=== PATIENT | female | born 1960 | race Caucasian/White ===

== ENCOUNTER → 2021-05-06 | Day surgery (SDC) | payer BC ==
[~2021-05-06] MED LIST: ACETAMINOPHEN 500 MG TABLET PO PRN; AMLO-186 PO; ATOR20TA58 PO; BALANCED SALT IRRIG SOLN NO.2 500 ML IO ONE; BENZONATATE 100 MG CAPSULE. PO PRN; BRIMONIDINE 0.2% OPHTH SOLUTION 5ML BOTTLE. OS ONE; CEFUROXIME OPHTH 4 MG/0.4 ML SYRINGE. OS ONE; CHONDROIT-SOD-HYALURONATE KIT. OS ONE; DORZ10DR27 EACHEYE; HYDR-2145 PO; IBUPROFEN 200 MG TABLET PO PRN; INSU100V13 SQ; INSULIN FLEX SQ; IPRATRPIUM/ALBUTEROL 0.5/2.5MG 3 ML NEBU. NEB PRN; IV RINGERS SOLUTION,LACTATED 1,000 ML IV SCH; LATA7.5D OU; LIDO/EPI IN BSS OPHTH 2.7 ML SYRINGE. OS ONE; LIDOCAINE 2% JELLY 6ML IN APPLICATOR. ONE; LISI10TA16 PO; MIDAZOLAM HCL PF 2 MG/2 ML VIAL. IV ONE; MIDAZOLAM HCL PF 2 MG/2 ML VIAL. ONE; ONDANSETRON PF 4 MG/2 ML VIAL. IV PRN; PHENYLEPHRINE 10% OPHTH SOLUTION 5ML BOTTLE. OS PRN; POVIDONE-IODINE 5% OPHTH SOLUTION 30ML BOTTLE. ONE; POVIDONE-IODINE 5% OPHTH SOLUTION 30ML BOTTLE. OS ONE; POVIDONE-IODINE 5% OPHTH SOLUTION 30ML BOTTLE. OS PRN; PROPARACAINE 0.5% OPHTH SOLUTION 15ML BOTTLE. OS ONE; PROPARACAINE 0.5% OPHTH SOLUTION 15ML BOTTLE. OS PRN; SERT-269 PO; prednisoLONE ACETATE 1% OPHTH SUSPENSION 5ML BOTTLE. OS ONE
[2021-05-06] MEDS: TROPICAMIDE 1% OPHTH SOLUTION 15ML BOTTLE. OS SCH ×3 (09:26→09:36)
[2021-05-06] MEDS: PHENYLEPHRINE 2.5% OPHTH SOLUTION 2ML BOTTLE. OS SCH ×3 (09:26→09:36)
[2021-05-06] MEDS: KETOROLAC TROMETHAMINE 0.5% OPHTH SOLUTION BOTTLE. OS SCH ×2 (09:26→09:32)
[2021-05-06] MEDS: TOBRAMYCIN 0.3% OPHTH SOLUTION 5ML BOTTLE. OS SCH ×2 (09:26→09:32)
--- NOTE | 2021-05-06 11:13 | PDOC4 ---
Cataract i-Stent Injection Surgeon: Mason Andrews MD Date of Procedure: 05/06/21 Preop Diagnosis: Visually significant cataract: Left Eye OS Primary open angle glaucoma: Left eye Postop Diagnosis: Postop Diagnosis: Same Procedure: Phaco w/ posterior chamber IOL: Left Eye OS iStent Inject Trabecular Micro: Left eye Anesthesia: Deep forniceal periocular 2% Lidocaine jelly Tali/retro bulbar block with 2% Lidocaine with 0.5% Marcaine Description of Procedure: The risks, benefits, and alternatives were discussed with the patient who elected to proceed. Informed consent was obtained in writing and placed in the chart After anesthetizing the eye topically, the patient was taken to the operating room, and the operative eye was prepped and draped in the usual sterile fashion for ocular surgery. A wire lid speculum was placed. A 1-mm clear corneal paracentesis incision was created with the sideport blade at a position three clock hours clockwise from the temporal cornea. Then 1% non-preserved Lidocaine with epinephrine was injected into the anterior chamber followed by viscoelastic. Cotton-tipped applicators were used to stabilize the globe, and a 2.4 mm keratome was used to create a self-sealing incision in the clear cornea at the temporal limbus. At this point, the head of the patient was titled away from the surgeon and the microscope was angled nasally to facilitate visualization of the nasal angle structures. Viscoelastic was placed on the corneas and a gonioprism was used to implate two iStents into the nasal trabecular meshwork. These were visualized and found to be stable in an appropriate position. The Utrata forceps were used to create a continuous curvilinear capsulorrhexis. Balanced saline solution was injected via cannula beneath the capsulorrhexis edge to hydrodissect the lens nucleus and cortex from the lens capsule. The phacoemulsification handpiece and a chopping instrument were then used to remove the lens nucleus. The remaining epinuclear material and cortex were removed with the irrigation/aspiration handpiece. Viscoelastic was used to re-inflate the lens capsule, and the intraocular lens was injected directly into the capsular bag. The corneal wound edges were hydrated with balanced salt solution on a cannula and the irrigation/aspiration handpiece was used to extract the remaining viscoelastic. Cefuroxime 0.1mg/ml/Vigamox 0.5% was injected into the anterior chamber intracamerally. The wounds were inspected and found to be watertight at an appropriate interocular pressure. The lid speculum and drapes were carefully removed. The patient was taken to the recovery area in good condition. Co-managed patients/postop examination stable for co-management with referring Doctor. Incision Dighton: Incision Dighton: 180 LRI: LRI: No Patch/Shield with Max/Tob/Eryt Patch/shield with Maxitrol/Tobradex/Erythromycin ointment: Yes No EBL: EBL: None Specimens Collected: Specimens Collected: None MASON ANDREWS MD May 06, 2021 11:13
[2021-05-06 11:25] VITALS: BP 155/77
== END | disposition home or self-care (01) ==
LOC: SURG 09:06
PROVIDERS: ATTEND Ophthalmology
DX: E11.36 Type 2 diabetes mellitus with diabetic cataract (principal); H25.12 Age-related nuclear cataract, left eye; E11.39 Type 2 diabetes mellitus with other diabetic ophthalmic complication; H40.1122 Primary open-angle glaucoma, left eye, moderate stage; E78.00 Pure hypercholesterolemia, unspecified; I10 Essential (primary) hypertension; Z79.899 Other long term (current) drug therapy; Z88.8 Allergy status to other drugs, medicaments and biological substances; Z79.4 Long term (current) use of insulin
CPT/HCPCS: 0191T; 0376T; 66984; 82947; C1783; V2632; J2250

== ENCOUNTER → 2021-05-20 | Day surgery (SDC) | payer BC ==
[~2021-05-20] MED LIST changes: +BRIMONIDINE 0.2% OPHTH SOLUTION 5ML BOTTLE. OD ONE; -BRIMONIDINE 0.2% OPHTH SOLUTION 5ML BOTTLE. OS ONE; +CEFUROXIME OPHTH 4 MG/0.4 ML SYRINGE. OD ONE; -CEFUROXIME OPHTH 4 MG/0.4 ML SYRINGE. OS ONE; +CHONDROIT-SOD-HYALURONATE KIT. OD ONE; -CHONDROIT-SOD-HYALURONATE KIT. OS ONE; +LIDO/EPI IN BSS OPHTH 2.7 ML SYRINGE. OD ONE; -LIDO/EPI IN BSS OPHTH 2.7 ML SYRINGE. OS ONE; +PHENYLEPHRINE 10% OPHTH SOLUTION 5ML BOTTLE. OD PRN; -PHENYLEPHRINE 10% OPHTH SOLUTION 5ML BOTTLE. OS PRN; +POVIDONE-IODINE 5% OPHTH SOLUTION 30ML BOTTLE. OD ONE; +POVIDONE-IODINE 5% OPHTH SOLUTION 30ML BOTTLE. OD PRN; -POVIDONE-IODINE 5% OPHTH SOLUTION 30ML BOTTLE. OS ONE; -POVIDONE-IODINE 5% OPHTH SOLUTION 30ML BOTTLE. OS PRN; +PROPARACAINE 0.5% OPHTH SOLUTION 15ML BOTTLE. OD ONE; +PROPARACAINE 0.5% OPHTH SOLUTION 15ML BOTTLE. OD PRN; -PROPARACAINE 0.5% OPHTH SOLUTION 15ML BOTTLE. OS ONE; -PROPARACAINE 0.5% OPHTH SOLUTION 15ML BOTTLE. OS PRN; +prednisoLONE ACETATE 1% OPHTH SUSPENSION 5ML BOTTLE. OD ONE; -prednisoLONE ACETATE 1% OPHTH SUSPENSION 5ML BOTTLE. OS ONE
[2021-05-20] MEDS: TROPICAMIDE 1% OPHTH SOLUTION 15ML BOTTLE. OD SCH ×3 (09:00→09:11)
[2021-05-20] MEDS: PHENYLEPHRINE 2.5% OPHTH SOLUTION 2ML BOTTLE. OD SCH ×3 (09:00→09:11)
[2021-05-20] MEDS: TOBRAMYCIN 0.3% OPHTH SOLUTION 5ML BOTTLE. OD SCH ×2 (09:00→09:06)
[2021-05-20] MEDS: KETOROLAC TROMETHAMINE 0.5% OPHTH SOLUTION BOTTLE. OD SCH ×2 (09:01→09:06)
--- NOTE | 2021-05-20 10:51 | PDOC4 ---
Cataract i-Stent Injection Surgeon: Mason Andrews MD Date of Procedure: 05/20/21 Preop Diagnosis: Visually significant cataract: Right Eye OD Primary open angle glaucoma: Right eye Postop Diagnosis: Postop Diagnosis: Same Procedure: Phaco w/ posterior chamber IOL: Right Eye OD iStent Inject Trabecular Micro: Right eye Anesthesia: Deep forniceal periocular 2% Lidocaine jelly Tali/retro bulbar block with 2% Lidocaine with 0.5% Marcaine Description of Procedure: The risks, benefits, and alternatives were discussed with the patient who elected to proceed. Informed consent was obtained in writing and placed in the chart After anesthetizing the eye topically, the patient was taken to the operating room, and the operative eye was prepped and draped in the usual sterile fashion for ocular surgery. A wire lid speculum was placed. A 1-mm clear corneal paracentesis incision was created with the sideport blade at a position three clock hours clockwise from the temporal cornea. Then 1% non-preserved Lidocaine with epinephrine was injected into the anterior chamber followed by viscoelastic. Cotton-tipped applicators were used to stabilize the globe, and a 2.4 mm keratome was used to create a self-sealing incision in the clear cornea at the temporal limbus. At this point, the head of the patient was titled away from the surgeon and the microscope was angled nasally to facilitate visualization of the nasal angle structures. Viscoelastic was placed on the corneas and a gonioprism was used to implate two iStents into the nasal trabecular meshwork. These were visualized and found to be stable in an appropriate position. The Utrata forceps were used to create a continuous curvilinear capsulorrhexis. Balanced saline solution was injected via cannula beneath the capsulorrhexis edge to hydrodissect the lens nucleus and cortex from the lens capsule. The phacoemulsification handpiece and a chopping instrument were then used to remove the lens nucleus. The remaining epinuclear material and cortex were removed with the irrigation/aspiration handpiece. Viscoelastic was used to re-inflate the lens capsule, and the intraocular lens was injected directly into the capsular bag. The corneal wound edges were hydrated with balanced salt solution on a cannula and the irrigation/aspiration handpiece was used to extract the remaining viscoelastic. Cefuroxime 0.1mg/ml/Vigamox 0.5% was injected into the anterior chamber intracamerally. The wounds were inspected and found to be watertight at an appropriate interocular pressure. The lid speculum and drapes were carefully removed. The patient was taken to the recovery area in good condition. Co-managed patients/postop examination stable for co-management with referring Doctor. Incision Cook: Incision Cook: 180 LRI: LRI: No Patch/Shield with Max/Tob/Eryt Patch/shield with Maxitrol/Tobradex/Erythromycin ointment: Yes No EBL: EBL: None Specimens Collected: Specimens Collected: None MASON ANDREWS MD May 20, 2021 10:51
[2021-05-20 11:01] VITALS: BP 137/42
== END | disposition home or self-care (01) ==
LOC: SURG 08:36
PROVIDERS: ATTEND Ophthalmology
DX: E11.36 Type 2 diabetes mellitus with diabetic cataract (principal); H25.11 Age-related nuclear cataract, right eye; H40.1112 Primary open-angle glaucoma, right eye, moderate stage; E11.39 Type 2 diabetes mellitus with other diabetic ophthalmic complication; E66.9 Obesity, unspecified; I10 Essential (primary) hypertension; E78.00 Pure hypercholesterolemia, unspecified; Z88.8 Allergy status to other drugs, medicaments and biological substances; Z79.899 Other long term (current) drug therapy; Z79.4 Long term (current) use of insulin
CPT/HCPCS: 0191T; 0376T; 66984; C1783; J2250; V2632